=== PATIENT | male | born 1965 | race Caucasian/White ===

== ENCOUNTER 2018-02-24 08:17 | Emergency (ER) | payer OTHER, MEDICAID ==
[~2018-02-24] VITALS: Ht 167.6 cm; Wt 54.4 kg
[2018-02-24 08:25] VITALS: BP 128/85
--- NOTE | 2018-02-24 08:27 | NUR ---
PT WHEEL CHAIR ASSISTED TO BED 9
--- NOTE | 2018-02-24 09:00 | NUR ---
PT. CAME INTO ED W/ C/O BILATERAL LEG PAIN AND ALSO NOT BEING ABLE TO HAVE A BM IN 5 DAYS. PT STATES " I HAVE ARTHRITIS I HAVE REALLY BAD PAIN IN MY LEGS AND ALSO I HAVE NOT HAD A BOWEL MOVEMENT IN 5 DAYS I USUALLY ONLY GO 3 DAYS WITHOUT A BOWEL MOVEMENT, I HAVE HAD SOME NAUSEA FOR 3 DAYS BUT HAVE BEEN DRINKING WATER AND PRAMOD AID". RR EVEN AND UNLABORED. AAOX4. N/V FOR 3 DAYS. MUCOUS MEMBRANES MOIST, SKIN WARM AND DRY AND ELASTIC, 10/10 PAIN IN HIS LEGS THAT RADIATES TO ALL OF HIS BODY. Ricki KAYE NOTIFIED. WILL CONTINUE TO MONITOR.
[2018-02-24] MEDS ORDERED: LORazepam 1 MG TAB PO ONE (10:05)
[2018-02-24] MEDS ORDERED: KETOROLAC 30 MG/ML VIAL IVP ONE (10:05)
[2018-02-24 10:50] LABS: BASOPHILS # (AUTO) 0.1 K/uL (0.00-0.22); BASOPHILS % (AUTO) 1.5 % (0.0-2.0); EOSINOPHILS # (AUTO) 0.2 K/uL (0-0.4); EOSINOPHILS % (AUTO) 2.1 % (0.0-4.0); HEMATOCRIT 41.7 % (36-52); HEMOGLOBIN 14.1 g/dL (12.0-18.0); LYMPHOCYTES # (AUTO) 2.3 K/uL (2.0-11.5); LYMPHOCYTES % (AUTO) 30.2 % (20.5-51.1); MEAN CORPUSCULAR HEMOGLOBIN 33 pg (27-31); MEAN CORPUSCULAR HGB CONC 34 g/dL (33-37); MEAN CORPUSCULAR VOLUME 96.7 fL (80-94); MONOCYTES # (AUTO) 0.4 K/uL (0.8-1.0); MONOCYTES % (AUTO) 5.1 % (1.7-9.3); NEUTROPHILS # (AUTO) 4.6 K/uL (1.8-7.7); NEUTROPHILS % (AUTO) 61.1 % (42.2-75.2); PLATELET COUNT (AUTO) 228 K/uL (140-450); RED BLOOD CELL COUNT(AUTO) 4.32 MIL/uL (4.20-6.10); RED CELL DISTRIBUTION WIDTH 13.5 % (11.6-13.7); WHITE BLOOD COUNT (AUTO) 7.5 K/uL (4.8-10.8)
[2018-02-24 11:18] LABS: ALBUMIN 3.3 g/dL (3.4-5.0); ANION GAP 15.9 (8-16); CARBON DIOXIDE 27.1 mmol/L (21-32); CREATININE 1.3 mg/dL (0.7-1.3); TOTAL BILIRUBIN 0.4 mg/dL (0.0-1.0)
--- NOTE | 2018-02-24 11:59 | NUR ---
PT. RESTING COMFORTABLY IN BED, RR EVEN AND UNLABORED WILL CONTINUE TO MONITOR.
[2018-02-24 12:24] VITALS: BP 116/73
--- NOTE | 2018-02-24 12:24 | NUR ---
Patient discharged with v/s stable. Written and verbal after care instructions given and explained. Patient alert, oriented and verbalized understanding of instructions. Ambulatory with steady gait. All questions addressed prior to discharge. ID band removed. Patient advised to follow up with PMD. Rx of LASIX given. Patient educated on indication of medication including possible reaction and side effects. Opportunity to ask questions provided and answered.
[2018-02-24 15:45] LABS: APPEARANCE,URINE CLEAR (CLEAR); BILIRUBIN,URINE NEGATIVE (NEGATIVE); BLOOD, URINE NEGATIVE (NEGATIVE); COLOR,URINE YELLOW (YELLOW); LEUKOCYTE ESTERASE ,URINE NEGATIVE (NEGATIVE); NITRITE, URINE NEGATIVE (NEGATIVE); PH,URINE 5.5 (5.0-9.0); UGLUCOSE 3+ (NEGATIVE)
[2018-02-24 15:52] LABS: BARBITURATE, URINE NEG. ng/ml (NEG <=200); BENZODIAZEPINE, URINE NEG. ng/mL (NEG <=200); CANNABINOID, URINE NEG. ng/mL (NEG <=50); COCAINE, URINE NEG. ng/mL (NEG <=300); OPIATE, URINE NEG. ng/mL (NEG <=2000); PHENCYCLIDINE SCREEN,URINE NEG. ng/mL (NEG <=25)
== END 2018-02-24 12:24 | disposition home or self-care (01) ==
LOC: MED 08:17
DX: R60.0 Localized edema (principal); G89.29 Other chronic pain; Z88.8 Allergy status to other drugs, medicaments and biological substances
CPT/HCPCS: 36415; 71045; 80053; 80305; 81003; 83880; 84484; 85025; 93005; 93970; 96372; 99285; J1885; Q0092